=== PATIENT | female | born 1990 | race Caucasian/White ===

== ENCOUNTER 2022-11-21 14:41 | Inpatient (IN) | payer OTHER ==
[2022-11-21 15:08] VITALS: BMI 32.5
[2022-11-21] MEDS ORDERED: TRIMETHOBENZAMIDE HCL 200MG/2ML INJ IM ONE (15:11)
[2022-11-21] MEDS ORDERED: BENZOCAINE/MENTHOL (CHLORASEPTIC ) LOZENGE MM PRN (15:32)
[2022-11-21] MEDS ORDERED: MAG HYDROX/AL HYDROX/SIMETH 30 ML UNIT-DOSE CUP PO PRN (15:32)
[2022-11-21] MEDS ORDERED: LOPERAMIDE HCL 2 MG CAPSULE PO PRN (15:32)
[2022-11-21] MEDS ORDERED: ACETAMINOPHEN 325 MG TABLET (FP) PO PRN (15:32)
[2022-11-21] MEDS ORDERED: IBUPROFEN 400 MG TABLET (FP) PO PRN (15:32)
[2022-11-21] MEDS ORDERED: BENZONATATE 200 MG CAPSULE PO PRN (15:32)
[2022-11-21] MEDS ORDERED: NICOTINE 10 MG CARTRIDGE (INHALER) IH PRN (15:32)
[2022-11-21] MEDS ORDERED: methaDONE HCL 10 MG TABLET (FOR DETOX USE ONLY) PO ONE (15:32)
[2022-11-21] MEDS ORDERED: hydrOXYzine PAMOATE 25 MG CAPSULE (FP) PO PRN (15:32)
[2022-11-21] MEDS ORDERED: guaiFENesin 600 MG TABLET.ER (FP) PO PRN (15:32)
[2022-11-21] MEDS ORDERED: IBUPROFEN 600 MG TABLET (FP) PO PRN (15:32)
[2022-11-21] MEDS ORDERED: NALOXONE HCL 0.4 MG/ML VIAL IM PRN (15:32)
[2022-11-21] MEDS ORDERED: DICYCLOMINE HCL 10 MG CAPSULE PO PRN (15:32)
[2022-11-21] MEDS ORDERED: BISMUTH SUBSALICYLATE 262 MG/15 ML BTL PO PRN (15:32)
[2022-11-21] MEDS ORDERED: NALOXONE HCL (KLOXXADO) 8 MG SPRAY NS PRN (15:32)
[2022-11-21] MEDS: NICOTINE 7 MG/24 HOURS TOPICAL PATCH TD SCH (15:53)
[2022-11-21] MEDS: PRENATAL VITAMINS W/ FOLIC ACID TABLET (FP) PO SCH (15:53)
[2022-11-21] MEDS ORDERED: methaDONE HCL 10 MG TABLET (FOR DETOX USE ONLY) ONE (15:54)
[2022-11-21] MEDS ORDERED: cloNIDine HCL 0.1 MG TABLET PO STA (16:18)
[2022-11-21] MEDS ORDERED: cloNIDine HCL 0.1 MG TABLET ONE (16:22)
[2022-11-21] MEDS ORDERED: LORazepam 2 MG/ML SDV VIAL IM ONE (18:28)
[2022-11-21] MEDS ORDERED: cloNIDine HCL 0.1 MG TABLET PO ONE (18:29)
[2022-11-21] MEDS ORDERED: MELATONIN 5 MG TABLETS PO SCH (22:00)
[2022-11-21] MEDS: METHOCARBAMOL 500 MG TABLET PO PRN (22:28)
[2022-11-21] MEDS: THIAMINE HCL 100 MG TABLET (FP) PO SCH (22:28)
[2022-11-21] MEDS: diazePAM 5 MG TABLET PO PRN (22:29)
[2022-11-22] MEDS: diazePAM 5 MG TABLET PO PRN ×5 (02:37→22:04)
[2022-11-22] MEDS: METHOCARBAMOL 500 MG TABLET PO PRN (05:30)
[2022-11-22] MEDS: NICOTINE 7 MG/24 HOURS TOPICAL PATCH TD SCH (10:12)
[2022-11-22] MEDS: PRENATAL VITAMINS W/ FOLIC ACID TABLET (FP) PO SCH (10:12)
[2022-11-22 11:32] LABS: POTASSIUM 4.1 mmol/L (3.5-5.1)
[2022-11-22 11:35] LABS: CALCIUM 9.6 mg/dL (8.5-10.1)
[2022-11-22 11:36] LABS: ALBUMIN 3.7 g/dl (3.4-5.0); BLOOD UREA NITROGEN 10.5 mg/dL (7-18)
[2022-11-22 11:39] LABS: CREATININE 0.7 mg/dL (0.55-1.3)
[2022-11-22 11:40] LABS: TOT PROT 7.4 g/dl (6.4-8.2)
[2022-11-22 11:41] LABS: BILIRUBIN,TOTAL 0.5 mg/dL (0.2-1)
[2022-11-22 11:43] LABS: HEMATOCRIT 35.7 % (32.4-45.2); HEMOGLOBIN 12.4 GM/dL (10.7-15.3); MCH 28.7 pg (25.7-33.7); MCHC 34.7 g/dl (32.0-36.0); MEAN CELL VOLUME 82.8 fl (80-96); MEAN PLT VOLUME 10.6 fl (7.5-11.1); PLATELET COUNT 270 10^3/uL (134-434); RBC 4.31 M/mm3 (3.60-5.2); RDW 13.5 % (11.6-15.6); WHITE BLOOD COUNT 7.9 K/mm3 (4.0-10.0)
[2022-11-22] MEDS: cloNIDine HCL 0.1 MG TABLET PO PRN (13:31)
[2022-11-22] MEDS: ONDANSETRON *ODT* 4 MG TABLET SL PRN (17:19)
[2022-11-22] MEDS: THIAMINE HCL 100 MG TABLET (FP) PO SCH (22:04)
[2022-11-22] MEDS: SUVOREXANT 10 MG TABLET PO PRN (22:30)
[2022-11-23] MEDS: METHOCARBAMOL 500 MG TABLET PO PRN ×3 (00:41→17:22)
[2022-11-23] MEDS: diazePAM 5 MG TABLET PO PRN ×4 (05:56→22:13)
[2022-11-23] MEDS ORDERED: methaDONE HCL 10 MG TABLET (FOR DETOX USE ONLY) PO ONE (10:00)
[2022-11-23] MEDS: PRENATAL VITAMINS W/ FOLIC ACID TABLET (FP) PO SCH (10:30)
[2022-11-23] MEDS: NICOTINE 7 MG/24 HOURS TOPICAL PATCH TD SCH (10:33)
[2022-11-23] MEDS: cloNIDine HCL 0.1 MG TABLET PO PRN ×2 (17:22→22:13)
[2022-11-23] MEDS: THIAMINE HCL 100 MG TABLET (FP) PO SCH (22:12)
[2022-11-23] MEDS: SUVOREXANT 10 MG TABLET PO PRN (22:13)
[2022-11-23] MEDS: MELATONIN 5 MG TABLETS PO SCH (22:14)
[2022-11-24] MEDS: diazePAM 5 MG TABLET PO PRN ×3 (04:29→15:48)
[2022-11-24] MEDS: METHOCARBAMOL 500 MG TABLET PO PRN ×2 (10:19→17:54)
[2022-11-24] MEDS: PRENATAL VITAMINS W/ FOLIC ACID TABLET (FP) PO SCH (10:22)
[2022-11-24] MEDS: NICOTINE 7 MG/24 HOURS TOPICAL PATCH TD SCH (10:22)
[2022-11-24] MEDS: MAGNESIUM HYDROX 2400MG/30ML ORAL SUSPENSION 30 ML CUP PO PRN (14:34)
[2022-11-24] MEDS: POLYETHYLENE GLYCOL (HEALTHYLAX) 3350 17 GM PACKET PO PRN (17:55)
[2022-11-24] MEDS: MELATONIN 5 MG TABLETS PO SCH (21:59)
[2022-11-24] MEDS: THIAMINE HCL 100 MG TABLET (FP) PO SCH (21:59)
[2022-11-24] MEDS: ONDANSETRON *ODT* 4 MG TABLET SL PRN (22:04)
[2022-11-24] MEDS: SUVOREXANT 10 MG TABLET PO PRN (22:04)
[2022-11-25] MEDS: NICOTINE 7 MG/24 HOURS TOPICAL PATCH TD SCH (09:54)
[2022-11-25] MEDS: PRENATAL VITAMINS W/ FOLIC ACID TABLET (FP) PO SCH (09:54)
[2022-11-25] MEDS ORDERED: methaDONE HCL 10 MG TABLET (FOR DETOX USE ONLY) PO ONE (10:00)
[2022-11-25] MEDS: ONDANSETRON *ODT* 4 MG TABLET SL PRN (12:23)
[2022-11-25] MEDS ORDERED: cloNIDine HCL 0.1 MG TABLET PO PRN (13:34)
[2022-11-25] MEDS: MAGNESIUM HYDROX 2400MG/30ML ORAL SUSPENSION 30 ML CUP PO PRN (17:26)
[2022-11-25 18:18] VITALS: RESP 18
[2022-11-25] MEDS: METHOCARBAMOL 500 MG TABLET PO PRN (22:18)
[2022-11-25] MEDS: POLYETHYLENE GLYCOL (HEALTHYLAX) 3350 17 GM PACKET PO PRN (22:18)
[2022-11-25] MEDS: THIAMINE HCL 100 MG TABLET (FP) PO SCH (22:18)
[2022-11-25] MEDS: MELATONIN 5 MG TABLETS PO SCH (22:18)
[2022-11-26 09:54] VITALS: BP 126/76; PULSE 71; TEMP 96.9
[2022-11-26] MEDS: PRENATAL VITAMINS W/ FOLIC ACID TABLET (FP) PO SCH (11:09)
[2022-11-26] MEDS: NICOTINE 7 MG/24 HOURS TOPICAL PATCH TD SCH (11:09)
== END 2022-11-26 10:38 | disposition home or self-care (01) | DRG 773 ==
LOC: YASAS 14:41 → Y6N 16:12
PROVIDERS: ADMIT Allergy & Immunology; ATTEND Surgery
PROC: HZ2ZZZZ Detoxification Services for Substance Abuse Treatment (ICD-10-PCS; principal; 2022-11-21)
DX: F11.23 Opioid dependence with withdrawal (principal); F13.20 Sedative, hypnotic or anxiolytic dependence, uncomplicated; F12.20 Cannabis dependence, uncomplicated; F17.210 Nicotine dependence, cigarettes, uncomplicated; F19.280 Other psychoactive substance dependence with psychoactive substance-induced anxiety disorder; F19.282 Other psychoactive substance dependence with psychoactive substance-induced sleep disorder; F19.24 Other psychoactive substance dependence with psychoactive substance-induced mood disorder; I10 Essential (primary) hypertension; J45.909 Unspecified asthma, uncomplicated; E66.9 Obesity, unspecified; Z68.32 Body mass index [BMI] 32.0-32.9, adult; Z62.810 Personal history of physical and sexual abuse in childhood; Z91.410 Personal history of adult physical and sexual abuse
CPT/HCPCS: 36415; 80053; 81025; 85027; 86780; 87635; 93005; 93010; Q0162

== ENCOUNTER 2022-12-19 13:57 | Inpatient (IN) | payer OTHER ==
[2022-12-19 14:47] VITALS: BMI 31.3
[2022-12-19] MEDS ORDERED: hydrOXYzine PAMOATE 25 MG CAPSULE (FP) PO PRN (15:16)
[2022-12-19] MEDS ORDERED: MAG HYDROX/AL HYDROX/SIMETH 30 ML UNIT-DOSE CUP PO PRN (15:16)
[2022-12-19] MEDS ORDERED: ONDANSETRON *ODT* 4 MG TABLET SL PRN (15:16)
[2022-12-19] MEDS ORDERED: ACETAMINOPHEN 325 MG TABLET (FP) PO PRN (15:16)
[2022-12-19] MEDS ORDERED: NALOXONE HCL (KLOXXADO) 8 MG SPRAY NS PRN (15:16)
[2022-12-19] MEDS ORDERED: BISMUTH SUBSALICYLATE 524 MG/30 ML PO PRN (15:16)
[2022-12-19] MEDS ORDERED: guaiFENesin 600 MG TABLET.ER (FP) PO PRN (15:16)
[2022-12-19] MEDS ORDERED: POLYETHYLENE GLYCOL (HEALTHYLAX) 3350 17 GM PACKET PO PRN (15:16)
[2022-12-19] MEDS ORDERED: MAGNESIUM HYDROX 2400MG/30ML ORAL SUSPENSION 30 ML CUP PO PRN (15:16)
[2022-12-19] MEDS ORDERED: LOPERAMIDE HCL 2 MG CAPSULE PO PRN (15:16)
[2022-12-19] MEDS ORDERED: IBUPROFEN 400 MG TABLET (FP) PO PRN (15:16)
[2022-12-19] MEDS ORDERED: P-EPHED 60MG/TRIPROLIDI 2.5MG TABLET PO PRN (15:16)
[2022-12-19] MEDS ORDERED: BENZOCAINE/MENTHOL (CHLORASEPTIC ) LOZENGE MM PRN (15:16)
[2022-12-19] MEDS ORDERED: DICYCLOMINE HCL 10 MG CAPSULE PO PRN (15:16)
[2022-12-19] MEDS ORDERED: NALOXONE HCL 0.4 MG/ML VIAL IM PRN (15:16)
[2022-12-19] MEDS ORDERED: BENZONATATE 200 MG CAPSULE PO PRN (15:16)
[2022-12-19] MEDS ORDERED: methaDONE HCL 10 MG TABLET (FOR DETOX USE ONLY) PO ONE (15:20)
[2022-12-19] MEDS ORDERED: TRIMETHOBENZAMIDE HCL 200MG/2ML INJ IM PRN (15:21)
[2022-12-19] MEDS ORDERED: methaDONE HCL 10 MG TABLET (FOR DETOX USE ONLY) ONE (16:18)
[2022-12-19] MEDS ORDERED: diazePAM 5 MG TABLET ONE (16:18)
[2022-12-19] MEDS: NIFEdipine E.R. 30 MG TABLET PO SCH (16:33)
[2022-12-19] MEDS: diazePAM 5 MG TABLET PO SCH ×2 (16:33→22:21)
[2022-12-19] MEDS: IBUPROFEN 600 MG TABLET (FP) PO PRN (19:04)
[2022-12-19] MEDS: METHOCARBAMOL 500 MG TABLET PO PRN (19:05)
[2022-12-19] MEDS: MELATONIN 5 MG TABLETS PO SCH (22:21)
[2022-12-19] MEDS: THIAMINE HCL 100 MG TABLET (FP) PO SCH (22:21)
[2022-12-20] MEDS: diazePAM 5 MG TABLET PO SCH ×4 (05:24→22:03)
[2022-12-20] MEDS: NIFEdipine E.R. 30 MG TABLET PO SCH (10:07)
[2022-12-20] MEDS: PRENATAL VITAMINS W/ FOLIC ACID TABLET (FP) PO SCH (10:07)
[2022-12-20] MEDS: cloNIDine HCL 0.1 MG TABLET PO PRN ×2 (10:07→22:02)
[2022-12-20] MEDS: ONDANSETRON *ODT* 4 MG TABLET SL PRN ×2 (12:07→21:49)
[2022-12-20] MEDS: METHOCARBAMOL 500 MG TABLET PO PRN (17:10)
[2022-12-20] MEDS: THIAMINE HCL 100 MG TABLET (FP) PO SCH (22:01)
[2022-12-20] MEDS: MELATONIN 5 MG TABLETS PO SCH (22:02)
[2022-12-20] MEDS: SUVOREXANT 10 MG TABLET PO PRN (22:03)
[2022-12-21] MEDS: diazePAM 5 MG TABLET PO SCH ×3 (05:32→22:15)
[2022-12-21] MEDS: METHOCARBAMOL 500 MG TABLET PO PRN ×2 (05:34→22:15)
[2022-12-21] MEDS ORDERED: methaDONE HCL 10 MG TABLET (FOR DETOX USE ONLY) PO ONE (10:00)
[2022-12-21] MEDS: NIFEdipine E.R. 30 MG TABLET PO SCH (10:19)
[2022-12-21] MEDS: PRENATAL VITAMINS W/ FOLIC ACID TABLET (FP) PO SCH (10:19)
[2022-12-21] MEDS: diazePAM 5 MG TABLET PO PRN (10:21)
[2022-12-21] MEDS: ONDANSETRON *ODT* 4 MG TABLET SL PRN (13:36)
[2022-12-21] MEDS: THIAMINE HCL 100 MG TABLET (FP) PO SCH (22:15)
[2022-12-21] MEDS: cloNIDine HCL 0.1 MG TABLET PO PRN (22:15)
[2022-12-21] MEDS: MELATONIN 5 MG TABLETS PO SCH (22:15)
[2022-12-21] MEDS: SUVOREXANT 10 MG TABLET PO PRN (22:16)
[2022-12-21] MEDS: IBUPROFEN 600 MG TABLET (FP) PO PRN (22:19)
[2022-12-22] MEDS: diazePAM 5 MG TABLET PO SCH ×2 (05:58→17:19)
[2022-12-22] MEDS: diazePAM 5 MG TABLET PO PRN (10:12)
[2022-12-22] MEDS: NIFEdipine E.R. 30 MG TABLET PO SCH (10:12)
[2022-12-22] MEDS: PRENATAL VITAMINS W/ FOLIC ACID TABLET (FP) PO SCH (10:12)
[2022-12-22] MEDS: METHOCARBAMOL 500 MG TABLET PO PRN ×2 (15:32→22:12)
[2022-12-22] MEDS ORDERED: SUVOREXANT 20 MG TABLET PO PRN (22:00)
[2022-12-22] MEDS ORDERED: SUVOREXANT 15 MG TABLET PO PRN (22:00)
[2022-12-22] MEDS: IBUPROFEN 600 MG TABLET (FP) PO PRN (22:12)
[2022-12-22] MEDS: THIAMINE HCL 100 MG TABLET (FP) PO SCH (22:12)
[2022-12-23] MEDS ORDERED: diazePAM 5 MG TABLET PO ONE (06:00)
[2022-12-23 06:32] VITALS: RESP 18
[2022-12-23] MEDS: ONDANSETRON *ODT* 4 MG TABLET SL PRN (08:16)
[2022-12-23 09:20] VITALS: BP 135/98; PULSE 73; TEMP 97.6
[2022-12-23] MEDS: PRENATAL VITAMINS W/ FOLIC ACID TABLET (FP) PO SCH (09:56)
[2022-12-23] MEDS: METHOCARBAMOL 500 MG TABLET PO PRN (09:57)
[2022-12-23] MEDS: NIFEdipine E.R. 30 MG TABLET PO SCH (09:57)
[2022-12-23] MEDS ORDERED: methaDONE HCL 10 MG TABLET (FOR DETOX USE ONLY) PO ONE (10:00)
== END 2022-12-23 10:12 | disposition home or self-care (01) | DRG 773 ==
LOC: YASAS 13:57 → Y6N 15:29
PROVIDERS: ADMIT Allergy & Immunology; ATTEND Surgery
PROC: HZ2ZZZZ Detoxification Services for Substance Abuse Treatment (ICD-10-PCS; principal; 2022-12-19)
DX: F11.23 Opioid dependence with withdrawal (principal); F13.230 Sedative, hypnotic or anxiolytic dependence with withdrawal, uncomplicated; F12.20 Cannabis dependence, uncomplicated; F19.282 Other psychoactive substance dependence with psychoactive substance-induced sleep disorder; F19.24 Other psychoactive substance dependence with psychoactive substance-induced mood disorder; I10 Essential (primary) hypertension; J45.909 Unspecified asthma, uncomplicated; Z62.810 Personal history of physical and sexual abuse in childhood; E66.9 Obesity, unspecified; Z68.31 Body mass index [BMI] 31.0-31.9, adult; Z91.410 Personal history of adult physical and sexual abuse
CPT/HCPCS: 81025; 87635; 87811; Q0162